=== PATIENT | female | born 2000 | race Caucasian/White ===

== ENCOUNTER 2020-12-03 06:42 | Outpatient (CLI) | payer SELFPAY ==
--- NOTE | 2020-12-03 06:48 | US_ITS ---
WS: [id number] ULTRASOUND ABDOMEN LIMITED CLINICAL INFORMATION: ABDOMINAL PAIN, RIGHT UPPER QUADRANT COMPARISON: None. FINDINGS: Technically difficult examination due to body habitus Liver Size: Enlarged Craniocaudal length: 18.4 cm. Echogenicity: Coarse Surface nodularity: None. Mass (size and location): None. Bile ducts Intrahepatic ducts: Normal. Common bile duct diameter: 0.5 cm. Gallbladder Normal. Gallstones: None. Gallbladder sludge: None. Gallbladder wall thickening: None. Pericholecystic fluid: None. Sonographic Wheeler sign: Absent. Pancreas Not well seen Right kidney: Normal. Hydronephrosis: None. Size: 11.2 cm x 5.9 cm x 6.1 cm. Abdominal aorta and IVC Visualized portions are normal. Ascites: None. US/US gall bladder [id number] IMPRESSION: Technically difficult examination. 1. Hepatomegaly. Diffuse fatty infiltration. 2. Normal gallbladder. Normal common bile duct. 3. No hydronephrosis in right kidney.
== END 2020-12-03 06:43 | disposition home or self-care (01) ==
PROVIDERS: PCP Family Medicine; Visit Provider Family Medicine
DX: R10.11 Right upper quadrant pain (principal); R16.0 Hepatomegaly, not elsewhere classified; K76.0 Fatty (change of) liver, not elsewhere classified
CPT/HCPCS: 76705

== ENCOUNTER 2021-02-22 06:57 | Outpatient (CLI) | payer OTHER, SELFPAY ==
--- NOTE | 2021-02-22 07:04 | NM_ITS ---
WS: [id number] NUCLEAR MEDICINE HIDA SCAN WITH GALLBLADDER EJECTION FRACTION HISTORY: ABDOMINAL PAIN, RUQ COMPARISON: Gallbladder ultrasound 12/03/2020 TECHNIQUE: The patient was intravenously injected with 4.6 mCi of TC99m Mebrofenin. Immediate imaging over the right upper quadrant was followed by 5 minute image and additional images for a total of 60 minutes. Normal uptake of radiotracer throughout the liver. Activity identified in the gallbladder at 15 minutes and well distended by 60 minutes. Activity in the proximal small bowel was seen by 20 minutes. Good washout of the radiotracer from the liver by 60 minutes. The patient then drank 8 ounces of Ensure Plus. Ejection fraction at 60 minutes was 63%. Normal GB ej ection fraction is 35-75%. Post fatty meal symptoms: None. NM/NM hepatobiliary w phar* [id number] IMPRESSION: 1. Normal HIDA scan. 2. Normal gallbladder ejection fraction.
== END 2021-02-22 06:58 | disposition home or self-care (01) ==
LOC: RAD 07:01
PROVIDERS: PCP Family Medicine; Visit Provider Family Medicine
DX: R10.11 Right upper quadrant pain (principal)
CPT/HCPCS: 78227; A9537

== ENCOUNTER 2022-05-06 04:28 | Emergency (ER) | payer SELFPAY ==
[2022-05-06 04:42] VITALS: BP 169/109; PULSE 105; RESP 20; TEMP 36.7; O2SAT 99; BMI 61.0
--- NOTE | 2022-05-06 05:31 | W.ED.ABDPA2 ---
HPI - Abdominal Pain General: Chief Complaint: Abdominal Pain Stated Complaint: dizzy, abd pain Time Seen by Provider: 05/06/22 04:47 History of Present Illness: 21-year-old female with epigastric and right upper quadrant pain. She notes she has had this pain on and off for years . She had a work-up of her gallbladder last year which was evidently negative. She has had worsening pain this morning. She is nauseated. He notes that she gets dizzy when she stands up due to the pain. She has inconsistent diarrhea. No fever. No history of belly surgery. MD elicited complaint: abdominal pain Pertinent past history: other Onset (ago): hour(s) Pain Consistency: constant and intermittent Location: Epigastric and RUQ Severity: moderate Pain scale (0-10): 6 Quality: stabbing and aching Migration to: no migration Exacerbating factors: movement Relieving factors: nothing Associated Symptoms: Denies belching, chills, coffee ground emesis, constipation, diarrhea, dysuria, fever(s), poor appetite and vomiting Review of Systems Const: Denies: fever(s) or chills ENMT: Denies: throat pain Card: Denies: chest pain or palpitations Resp: Denies: dyspnea GI: Denies: vomiting, coffee ground emesis, diarrhea, constipation or belching : Denies: dysuria Skin/Breast: Denies: rash Psych: Reports: anxiety PFSH ED PFSH: Family History Mother Hypertension Thyroid cancer Cervical cancer Father Heart disease Diabetes Social History Smoking and tobacco status: never smoked Alcohol intake: never Additional social history: well balanced diet Physical Exam Const: COMMON NORMALS: no acute distress GENERAL APPEARANCE: cooperative; not ill appearing and not frail appearing NUTRITIONAL APPEARANCE: obese ORIENTATION/CONSCIOUSNESS: Yes awake, Yes oriented to person, Yes oriented to place and Yes oriented to time HENMT: COMMON NORMALS: normocephalic, atraumatic and Normal external nose present HEAD & SCALP: normocephalic and atraumatic FACE & SINUS: normal facial exam and face symmetric NOSE: Normal external nose present Eye: COMMON NORMALS: Equal, round and reactive pupils present and EOMs intact bilaterally PUPIL: Yes Equal, round and reactive pupils present Neck/C-Spine: GENERAL: Yes trachea midline Chest: CHEST: Yes Symmetrical chest wall rise Resp: COMMON NORMALS: normal respiratory effort, No retractions, No use of accessory muscles and clear to auscultation bilaterally AUSCULTATION: clear to auscultation bilaterally Cardio: COMMON NORMALS: regular rate and regular rhythm RATE: regular rate RHYTHM: regular rhythm GI: COMMON NORMALS: Normal to inspection, nondistended, normoactive bowel sounds present PALPATION: Yes Tenderness to palpation present (GI) Details: RUQ : COMMON NORMALS: Yes no CVA tenderness BLADDER/KIDNEY EXAM: Yes no CVA tenderness Back/Pelvis: COMMON NORMALS: no CVA tenderness Extremity: COMMON NORMALS: no pedal edema Neuro: HAYLIE COMA SCALE: document GCS findings Haylie coma scale eye opening: Spontaneous [place] coma scale verbal response: Orientated [place] coma scale motor response: Obey commands [place] coma scale total score: 15 SENSORIUM/ORIENTATION: Yes oriented to person, Yes oriented to place and Yes oriented to time SENSORY EXAM: Yes extremities (intact) Psych: COMMON NORMALS: speech normal SPEECH: Yes normal speech Skin: COMMON NORMALS: no rashes or lesions noted GENERAL SKIN EXAM: no rashes or lesions noted Course Vital Signs: Vital signs: Vital Signs Temperature 98.1 F 05/06/22 04:42 Pulse Rate 90 05/06/22 06:38 Respiratory Rate 18 05/06/22 06:38 Blood Pressure 152/101 05/06/22 06:38 Pulse Oximetry 98 05/06/22 06:38 Oxygen Delivery Me thod 05/06/22 06:00 MDM - Abdominal Pain Medical Decision Making 21-year-old female with epigastric and right upper quadrant pain. She had a work-up of her gallbladder in the recent past, with a negative HIDA scan and normal gallbladder function. Her white blood cell count is 10. No left shift. CRP is 20. Liver enzymes are normal save an alk phos of 106. Lipase is normal. GI cocktail significantly relieved her pain. She declined IV Toradol and Zofran. She will be allowed home on a PPI. Lab Data 05/06/22 05:37 05/06/22 05:37 Labs/Radiology: Laboratory Results WBC 10.4 10^3/uL (4.0-10.0) H 05/06/22 05:37 RBC 5.49 10^6/uL (4.1-5.3) H 05/06/22 05:37 Hgb 13.8 g/dL (11.5-15.3) 05/06/22 05:37 Hct 44.6 % (37.0-47.0) 05/06/22 05:37 MCV 81.2 fl (81-99) 05/06/22 05:37 MCH 25.1 pg (28.0-34.0) L 05/06/22 05:37 MCHC 30.9 g/dL (30.0-36.0) 05/06/22 05:37 RDW 13.9 % (12.1-15.1) 05/06/22 05:37 Plt Count 443 10^3/cmm (130-400) H 05/06/22 05:37 MPV 9.4 fL (7.4-10.4) 05/06/22 05:37 Neut % (Auto) 58.8 % 05/06/22 05:37 Lymph % (Auto) 32.9 % 05/06/22 05:37 Long % (Auto) 6.7 % 05/06/22 05:37 Eos % (Auto) 0.9 % 05/06/22 05:37 Baso % (Auto) 0.5 % 05/06/22 05:37 Neut # (Auto) 6.11 10^3/uL (1.8-7.7) 05/06/22 05:37 Lymph # (Auto) 3.4 10^3/uL (0.8-4.8) 05/06/22 05:37 Long # (Auto) 0.7 10^3/uL (0.2-0.9) 05/06/22 05:37 Eos # (Auto) 0.1 10^3/uL (0.0-0.8) 05/06/22 05:37 Baso # (Auto) 0.1 10^3/uL (0.0-0.1) 05/06/22 05:37 Nucleated RBC % (auto) 0 % 05/06/22 05:37 Nucleated RBCs # 0.0 /100WBC 05/06/22 05:37 Sodium 139 mmol/L (136-145) 05/06/22 05:37 Potassium 4.1 mmol/L (3.5-5.1) 05/06/22 05:37 Chloride 103 mmol/L (98-107) 05/06/22 05:37 Carbon Dioxide 23 mmol/L (22-29) 05/06/22 05:37 Anion Gap 17.1 (5-19) 05/06/22 05:37 BUN 12 mg/dL (6-20) 05/06/22 05:37 Creatinine 0.7 mg/dL (0.5-0.9) 05/06/22 05:37 GFR Calculation 105.6 mL/min (90-130) 05/06/22 05:37 Glucose 114 mg/dL (65-115) 05/06/22 05:37 Calculated Osmolality 289 mOsm/kg (285-295) 05/06/22 05:37 Calcium 9.7 mg/dL (8.5-10.5) 05/06/22 05:37 Total Bilirubin 0.2 mg/dL (0.15-1.2) 05/06/22 05:37 AST 16 U/L (0-32) 05/06/22 05:37 ALT 18 U/L (0-33) 05/06/22 05:37 Alkaline Phosphatase 106 U/L (35-105) H 05/06/22 05:37 C-Reactive Protein 20.1 mg/L (0.0-4.9) H 05/06/22 05:37 Total Protein 7.8 g/dL (6.6-8.7) 05/06/22 05:37 Albumin 4.4 g/dL (3.5-5.2) 05/06/22 05:37 Globulin 3.4 g/dL (1.3-4.6) 05/06/22 05:37 Lipase 24 U/L (13-60) 05/06/22 05:37 HCG, Qual Negative (Negative) 05/06/22 05:37 Discharge Plan Discharge Patient Disposition: Home Clinical Impression: Gastritis Condition: Stable Prescriptions: New Prevacid 30 mg capsule,delayed release(DR/EC) 30 mg PO DAILY Qty: 30 0RF No Action metformin 500 mg tablet extended release 24 hr 500 mg PO TID Rx Instructions: after large meals buspirone 5 mg tablet 5 mg PO BID 5 (28) 1.5 mg-30 mcg (21)/75 mg (7) tablet 1 tab PO QDAY spironolactone 100 mg tablet 100 mg PO QDAY citalopram 10 mg tablet 10 mg PO QDAY Discharge Orders: Discharge ED (Routine); Ordered 05/06/22 Ordered By: Delvis Vergara Referrals: Parker James MD [Primary Care Provider] - 4-7 days Patient Instructions: Gastritis (ED) Activity Restrictions/Additional Instructions: Medication as directed. Return for fever greater than 100, vomiting liquids or medications, other concerning symptoms. Follow-up next week with your doctor, as further outpatient testing may be necessary. 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
[2022-05-06 05:42] LABS: Basophils # 0.1 10^3/uL (0.0-0.1); Basophils % 0.5 %; Eosinophils # 0.1 10^3/uL (0.0-0.8); Eosinophils % 0.9 %; Hematocrit 44.6 % (37.0-47.0); Hemoglobin 13.8 g/dL (11.5-15.3); Lymphocytes # 3.4 10^3/uL (0.8-4.8); Lymphocytes % 32.9 %; Mean Corpuscular HGB Conc 30.9 g/dL (30.0-36.0); Mean Corpuscular Hemoglobin 25.1 pg (28.0-34.0); Mean Corpuscular Volume 81.2 fl (81-99); Mean Platelet Volume 9.4 fL (7.4-10.4); Monocytes # 0.7 10^3/uL (0.2-0.9); Monocytes % 6.7 %; Neutrophils # 6.11 10^3/uL (1.8-7.7); Neutrophils % 58.8 %; Nucleated Red Blood Cells % 0 %; Platelet Count 443 10^3/cmm (130-400); Red Blood Count 5.49 10^6/uL (4.1-5.3); Red Cell Distribution Width 13.9 % (12.1-15.1); White Blood Count 10.4 10^3/uL (4.0-10.0)
[2022-05-06] MEDS: lidocaine 2% viscous 15 ML, aluminum-mag hydrox-simethicon 30 ML, sucralfate oral liq 1 GM PO (05:44)
[2022-05-06 06:00] VITALS: BP 139/85; PULSE 102; RESP 20; O2SAT 95
[2022-05-06 06:08] LABS: Alanine Aminotransferase 18 U/L (0-33); Albumin Level 4.4 g/dL (3.5-5.2); Alkaline Phosphatase 106 U/L (35-105); Anion Gap 17.1 (5-19); Aspartate Amino Transferase 16 U/L (0-32); Blood Urea Nitrogen 12 mg/dL (6-20); C Reactive Protein 20.1 mg/L (0.0-4.9); Calcium 9.7 mg/dL (8.5-10.5); Carbon Dioxide 23 mmol/L (22-29); Chloride 103 mmol/L (98-107); Globulin 3.4 g/dL (1.3-4.6); Glomerular Filtration Rate 105.6 mL/min (90-130); Glucose 114 mg/dL (65-115); Lipase 24 U/L (13-60); Osmolality Calculated 289 mOsm/kg (285-295); Potassium 4.1 mmol/L (3.5-5.1); Sodium 139 mmol/L (136-145); Total Bilirubin 0.2 mg/dL (0.15-1.2); Total Protein 7.8 g/dL (6.6-8.7)
[2022-05-06 06:10] LABS: HCG, Serum Qual Negative (Negative)
[2022-05-06 06:38] VITALS: BP 152/101; PULSE 90; RESP 18; O2SAT 98
== END 2022-05-06 06:35 | disposition home or self-care (01) ==
PROVIDERS: Emergency Provider Emergency Medicine; PCP Family Medicine
DX: K29.70 Gastritis, unspecified, without bleeding (principal); Z79.84 Long term (current) use of oral hypoglycemic drugs
CPT/HCPCS: 80053; 83690; 84703; 85025; 86140; 99283

== ENCOUNTER → 2023-02-21 11:14 | Outpatient (BNVA) | payer SELFPAY | PROVIDERS: PCP Family Medicine; Visit Provider Family Medicine | DX: R10.13 Epigastric pain (principal); R10.9 Unspecified abdominal pain; Z51.81 Encounter for therapeutic drug level monitoring | CPT/HCPCS: 80053; 83690; 85025; 86141 ==

== ENCOUNTER 2023-08-07 11:00 | Outpatient (CLI) | payer SELFPAY | END 2023-08-07 11:01 | disposition home or self-care (01) | LOC: LAB 11:03 | PROVIDERS: PCP Family Medicine; Visit Provider Family Medicine | DX: Z01.89 Encounter for other specified special examinations (principal) | CPT/HCPCS: 36415; 86317; 86708; 86787 ==